=== PATIENT | female | born 1955 | race Caucasian/White ===

== ENCOUNTER 2025-10-09 12:46 | Outpatient (AMB) | payer MEDICARE, OTHER, SELFPAY ==
--- NOTE | 2025-10-09 12:49 | HO.SPINEOV ---
Vital Signs 10/09/25 12:55 Height 5 ft 8 in Weight 185 lb BMI 28.1 Intake Visit Reasons: Herniated disc Intake Note: Ms. Garibay is here today c/o Left sided low back pain. Coremaking Supervisor Required: No Allergies No Known Allergies Allergy (Verified 10/09/25 12:55) Physical Exam Vital Signs: BMI result Body Mass Index 28.1 Assessment & Plan Assessment & Plan (1) Lumbar disc herniation: Code(s): M51.26 - Other intervertebral disc displacement, lumbar region Category: Medical Plan Dear Darleen, Thank you for referring Mrs Garibay to our office today. She is a very nice 69-year-old female who has history of previous L4-5 oblique lumbar interbody fusion with Dr. Delaney in 2019 who was doing excellent until around May of this year when she started to notice intensified back pain shooting down her left leg into her hamstring. It happened after she was lifting a heavy object. Fast forward a few months, she ended up fracturing her tibia and required surgery. She now tells me that the pain is much more manageable. Especially in light of the fact that she has been able to increase her gabapentin. She is also using Tylenol. She had undergone physical therapy for her back for a number of weeks but it was not really doing much. She had a lumbar MRI done at [facility] in August that showed large herniated disc on the left at L5-S1. She came in today for follow-up. She has not report any weakness or cauda equina PMH: Type 1 diabetic with an A1c of 7.4, well-controlled hypertension, hyperlipidemia, chronic kidney disease stage IIIA, history of coronary artery disease with a stent in 2018, follows up yearly at [facility]. History of tibial fracture repair in July of this year, L4-5 oblique lumbar interbody fusion with Dr. Delaney in 2019, shoulder surgery 2023. Denies any history of major abdominal surgery, strokes, liver disease, bleeding disorders, blood clots or unusual infections. Social hx: Does not smoke, drink use any recreational drugs Medications: Long-acting and fast acting insulin, lisinopril, rosuvastatin, metoprolol, Zetia, Tylenol, gabapentin and baby aspirin Allergies: None Physical exam: She uses a cane to walk secondary to some limitations with her tibia but no focal motor deficits. She does not have an antalgic gait. Strength is normal in the lower extremities, I was unable to test the right knee secondary to the surgery. Reflexes absent at the patella and the Achilles. Imaging review: Lumbar MRI at [facility] on 09/20/2025 shows postsurgical changes L4-5, at L5-S1 she has a large herniated disc on the left side compressing the left S1 nerve root. Impression: 69-year-old female who has been dealing with back pain and left posterior thigh pain since May of this year when she herniated a disc. She had a previous surgery L4-5 oblique lumbar interbody fusion with Dr. Delaney in 2019 and did well with that. She now has an issue at L5-S1 with a herniated disc. Thankfully she is feeling better and the gabapentin seems to be helping quite a bit. I reassured her that 90% of herniated discs resolve on their own. The patient will be calling your office for a refill on the gabapentin. If the pain worsens, I told her to come back to the office and this is typically something Dr. Delaney would offer a simple microdiskectomy. Otherwise I will just have her follow up with me in a few months. Thank you for allowing us to care for your patient. The total time spent with this visit with this patient was 45 minutes reviewing history, physical exam, lumbar imaging review, and implementation of treatment plan or further diagnostic testing Sudarshan Delaney MD,PhD [facility] Coding Level of Care Code New Pt Level 4 (89449) Diagnoses Lumbar disc herniation M51.26
[2025-10-09 12:55] VITALS: BMI 28.1
--- OUTSIDE RECORDS SUMMARY | 2025-10-09 15:53 | XMS_ITS | Clinical Summary ---
Author Organization [facility] Address [address] [place] [address] Phone Care Team Providers Care Rotary Cutter Operator Name Role Phone Lisa Molina NP Primary Care Provider [phone] Allergies No known active allergies Medications UNABLE TO FIND Insulin Aspart (NOVOLOG FLEXPEN SC), Inject into the skin. Sliding scale Active cholecalciferol (VITAMIN D-3) 10 mcg (400 unit) tablet Take 2,000 Int'l Units by mouth daily. Active omeprazole (PRILOSEC) 20 mg tablet,delayed release (DR/EC) Take 1 tablet (20 mg total) by mouth 1 (one) time each day. Active aspirin 81 mg capsule 1 (one) time each day. 9 Active Lactobac no.41/Bifidobac t no.7 (PROBIOTIC-10 ORAL) 1 (one) time each day. Probiotic Product (Probiotic-10) Chew Tab Active insulin degludec (Tresiba FlexTouch U-100) 100 unit/mL (3 mL) injection pen 16 Units 2 times daily. 9 Active metoprolol succinate (TOPROL-XL) 25 mg 24 hr tablet TAKE 1 TABLET DAILY 90 tablet 1 5 Active lisinopriL (PRINIVIL,ZESTR IL) 30 mg tablet TAKE 1 TABLET DAILY 90 tablet 2 5 Active rosuvastatin (CRESTOR) 40 mg tablet TAKE 1 TABLET DAILY 90 tablet 2 5 Active ezetimibe (ZETIA) 10 mg tablet TAKE 1 TABLET DAILY 90 tablet 2 5 Active Active Problems Problem Noted Date Diagnosed Date Spondylolisthesis of lumbar region 11/18/2021 Diabetes ([facility] V24, [facility] V28) 09/30/2021 CAD (coronary artery disease) 07/29/2021 Overview (11/21/2024): Last Assessment & Plan: Patient has a history of coronary artery disease. She denies any exertional symptoms. She denies any episodes of chest pain. She continues on cardioprotective medical therapy with aspirin, metoprolol, and rosuvastatin. Patient advised to seek emergency medical attention by calling 911 if they were to develop severe dyspnea, chest pain that did not resolve with rest or nitroglycerin, or if they were to faint. Assessment & Plan (12/18/2024 9:12 AM EST): The patient has a history of coronary artery disease. Currently, the patient denies any chest pain at rest or with exertion. The patient continues on secondary preventive therapy for CAD, including: aspirin, statin and beta sosa. Will continue current therapy. HLD (hyperlipidemia) 07/29/2021 Overview (11/21/2024): Last Assessment & Plan: Patient has history of hyperlipidemia as well as a history of coronary artery disease. Her last LDL cholesterol was noted to be 50 in September 2022. She continues on rosuvastatin as prescribed. We will update a new CMP and fasting lipid panel to reassess her lipid control and make any adjustments as necessary. Her AST and ALT have been mildly elevated in the past and she follows with an supervisor hydrochloric area. I have reviewed with the patient the importance of a heart healthy lifestyle which includes eating a low-fat low-salt diet, getting regular exercise, maintaining a healthy weight, not smoking, and following up with routine medical care. Assessment & Plan (12/18/2024 9:12 AM EST): The patient has a history of hyperlipidemia. The patient is currently on rosuvastatin 40 mg orally daily and Zetia 10 mg orally daily. We will order a new lipid panel to evaluate the patient's current lipid control and determine if any adjustment are needed in the lipid lowering therapy. Orders: Lipid panel; Future Hepatic function panel; Future HTN (hypertension) 07/29/2021 Overview (11/21/2024): Last Assessment & Plan: Patient has a history of hypertension. Her blood pressure is noted to be well controlled today. We will continue her current antihypertensive medication regimen with lisinopril and metoprolol as prescribed. Assessment & Plan (12/18/2024 9:12 AM EST): The patient has a history of arterial hypertension. The patient's blood pressure today was noted to be well controlled. We'll continue the current antihypertensive medication regimen. Orders: ECG 12 lead Medical History Medical History Date Comments Chronic ischemic heart disease D X:Chronic ischemic heart disease Hyperlipidemia DX:Hyperlipidemi a Essential hypertension DX:Essent ial hypertension Family History Medical History Relation Name Comments No Known Problems Father No Known Problems Mother Relation Name Status Comments Father Mother Social History Tobacco Use Types Packs/Day Years Used Date Smoking Tobacco: Former Smokeless Tobacco: Former Alcohol Use Standard Drinks/Week Comments Not Currently 0 (1 standard drink = 0.6 oz pur e alcohol) Comments Unknown Sex and Gender Information Value Date Recorded Sex Assigned at Not on file Legal Sex Female 6:01 PM EST Gender Identity Not on file Sexual Orientation Not on file Obstetrics History Last Filed Vital Signs Vital Sign Reading Time Taken Comments Blood Pressure 136/80 12/18/2024 8:27 AM EST Pulse 74 12/18/2024 8:27 AM EST Temperature - - Respiratory Rate - - Oxygen Saturation 98% 12/18/2024 8:27 AM EST Inhaled Oxygen Concentration - - Weight 88.4 kg (194 lb 12.8 oz) 12/18/2024 8:27 AM EST Height 172.7 cm (5' 8 ) 12/18/2024 8:27 AM EST Body Mass Index 29.62 12/18/2024 8:27 AM EST Plan of Treatment Upcoming Encounters Date Type Department Care Team (Late st Contact Info) Description 12/18/2025 9:10 AM EST Office Visit [facility] [address] [place] [id number] Nae Warner NP [address] [place] [address] [address] [place] [address] 02/18/2026 10:10 AM EDT Office Visit Gastroenterology - [address] [facility] [address] [place] [phone] No Saaved[place] [address] [facility] [address] [place] [address] Health Maintenance Due Date Last Done Comments Breast Cancer Screening 1955 Diabetes: Annual Foot Exam 1965 Diabetes: Annual Retina Eye Exam 1965 Pneumococcal Vaccine: 50+ Years (1 of 2 - PCV) 1974 Zoster Vaccines (1 of 2) 2005 Falls Risk Assessment 10/29/2022 Hepatitis C Screening 10/29/2022 Medicare Annual Wellness Visit 10/29/2022 Osteoporosis Screening (Bone Density Screening) 10/29/2022 Social Influencers of Health Screening 10/29/2022 Diabetes: Annual Urine Albumin-Creatinine Ratio (uACR) 11/12/2022 Diabetes: Blood Sugar Control Test (HGBA1C) 11/12/2022 Diabetes: Annual GFR (Glomerular Filtration Rate) 04/22/2024 04/22/2023 Hypertension/CHF/CAD Annual BMP Blood Test 04/22/2024 04/22/2023 Depression Screening 11/27/2024 COVID-19 Vaccine ( season) 2025 09/12/2024, 09/10/2023, 08/11/2022, Additional history exists Influenza Vaccine (#1) 2025 , 09/10/2023, 08/11/2022, Additional history exists Cholesterol Screening (Lipid Panel) 12/18/2029 12/18/2024 RSV Immunization Adult Patients (1 - 1-dose 75+ series) 2030 DTaP,Tdap,and Td Vaccines (2 - Td or Tdap) 08/10/2035 08/10/2025 Colorectal Cancer Screening: Colonoscopy 08/12/2035 08/12/2025 HIB Vaccines Aged Out No longer eligi ble based on patient's age to complete this topic HPV Vaccines Aged Out No longer eligi ble based on patient's age to complete this topic Hepatitis A Vaccines Aged Out No long er eligible based on patient's age to complete this topic Hepatitis B Vaccines Aged Out No long er eligible based on patient's age to complete this topic IPV Vaccines Aged Out No longer eligi ble based on patient's age to complete this topic MMR Vaccines Aged Out No longer eligi ble based on patient's age to complete this topic Meningococcal ACWY Vaccine Aged Out N o longer eligible based on patient's age to complete this topic Meningococcal B Vaccine Aged Out No l onger eligible based on patient's age to complete this topic RSV Immunization Patients Under 20 months Aged Out No longer eligible based on patient's age to complete this topic Varicella Vaccines Aged Out No longer eligible based on patient's age to complete this topic Procedures Procedure Name Priority Date/Time Associated Diagnosis Comments COLONOSCOPY Routine 08/12/2025 10:50 AM EDT LIPID PANEL Routine 12/18/2024 9:18 AM EST Pure hypercholesterolemia from Last 3 Months or Most Recently Relevant to Health Maintenance Results * COLONOSCOPY (08/12/2025 10:50 AM EDT) Anatomical Region Laterality Modality Endoscopy Historical Provider GI~PROCEDURE ORDERABLES F inal Result * Lipid panel (12/18/2024 9:18 AM EST) Cholesterol Total 142 100 - 199 mg/dL [facility] Triglycerides 124 0 - 149 mg/dL [facility] 1 HDL Cholesterol 58 >39 mg/dL [facility] 1 VLDL Cholesterol Calculated 22 5 - 40 mg/dL [facility] 1 LDL Chol Calc (NIH) 62 0 - 99 mg/dL [facility] 1 Blood Venous blood specimen / Unknown 12/18/2024 9:18 AM EST 12/18/2024 Narrative [facility] 1 - 12/19/2024 4:06 AM EST Performed at: 01 - [facility] [address] [id number] Pilates Coordinator: Tessie Tovar MD, Phone: [phone] Александр Contreras MD LAB BLOOD ORDERABLES F inal Result [facility] 1 from Last 3 Months or Most Recently Relevant to Health Maintenance Insurance MEDICARE [facility] Care Teams Rotary Cutter Operator Relationship Specialty Start Date End Date Lisa Molina NP [address] [place] [address] PCP - General 10/02/19
--- OUTSIDE RECORDS SUMMARY | 2025-10-09 15:53 | XMS_ITS | Encounter Summary ---
Author Organization [facility] Address [address] [place] [address] Phone Care Team Providers Care Converting Technician Name Role Phone Lisa Molina VOLCANOLOGIST-C Primary Care Provider + Encounter Details Date Type Department Care Team (Late st Contact Info) Description 07/28/2023 Documentation Only [facility], [address] [place] [address] Tony Velez [address] [place] [address] Social History Tobacco Use Types Packs/Day Years Used Date Smoking Tobacco: Never Alcohol Use Standard Drinks/Week Comments Never 0 (1 standard drink = 0.6 oz pur e alcohol) Comments Unknown Sex and Gender Information Value Date Recorded Sex Assigned at Not on file Legal Sex Female 2:16 PM EDT Gender Identity Not on file Sexual Orientation Not on file documented as of this encounter Functional Status documented as of this encounter Plan of Treatment Not on file documented as of this encounter Visit Diagnoses Not on filedocumented in this encounter Care Teams Converting Technician Relationship Specialty Start Date End Date Lisa Mloina NP-C [address] [facility] [address] [place] [address] PCP - General Nurse Practitioner 07/28/23 documented as of this encounter
--- OUTSIDE RECORDS SUMMARY | 2025-10-09 15:53 | XMS_ITS | Clinical Summary ---
Author Organization [facility] Address [address] [place] [address] Care Team Providers Care Insert Operator Name Role Phone Lisa Molina Primary Care Provider [phone] Allergies No known active allergies Medications OneTouch Verio test strips USE TO TEST 8 TIMES DAILY 08/17/20 20 Active Yuvafem 10 mcg tablet PLEASE SEE ATTACHED FOR DETAILED DIRECTIONS 03/10/20 21 Active ezetimibe (ZETIA) 10 mg tablet Take 10 mg by mouth daily. 03/22/20 21 Active Tresiba FlexTouch U-100 100 unit/mL (3 mL) insulin pen INJECT 16 UNITS SUBCUTANEOUS TWICE DAILY FOR 90 DAYS 01/19/20 21 Active lisinopriL (PRINIVIL,ZESTRI L) 30 mg tablet Take 30 mg by mouth daily. 03/18/20 21 Active metoprolol succinate XL (TOPROL XL) 25 mg tablet Take 25 mg by mouth daily. 02/09/20 21 Active rosuvastatin (CRESTOR) 40 mg tablet Take 40 mg by mouth daily. 02/26/20 21 Active acetaminophen (TYLENOL) 500 mg tablet Take 500 mg by mouth every 6 hours as needed for pain. Active aspirin 81 mg EC tablet Take 81 mg by mouth daily. Active betamethasone dipropionate 0.05 % ointmentIndicati ons:Lichen sclerosus Apply nightly to affected itchy areas of the body. 45 g 3 08/06/20 24 Active vitamin D3 25 mcg (1,000 unit) capsule Take 2,000 Units by mouth once a day. Active lansoprazole (PREVACID) 30 mg capsule 09/18/20 24 Active metoclopramide (REGLAN) 10 mg tablet SMARTSI Tablet(s) By Mouth Twice Daily PRN 08/14/20 24 Active triamcinolone acetonide (KENALOG) 0.1% creamIndications :Lichen sclerosus Apply nightly to rash on back and abdomen until next follow up visit in 2-3 months. 454 g 01/07/20 25 Active Fiasp FlexTouch U-100 Insulin 100 unit/mL (3 mL) insulin pen INJECT 10 UNITS SUBCUTANEOUSLY 3 TIMES A DAY BEFORE MEALS Active gabapentin (NEURONTIN) 300 mg capsule Take 1 capsule (300 mg total) by mouth 3 times a day. 10 capsule 1 08/13/20 25 Active aspirin chewable tablet 81 mg Chew and swallow 2 tablets (162 mg total) by mouth 2 (two) times a day for 15 days. 60 tablet 08/15/20 25 Active naloxone HCl (NARCAN) 4 mg/actuation nasal spray Instill the contents of 1 unit intranasally for suspected opioid overdose. Repeat after 3 minutes if no or minimal response. 1 each 08/15/20 25 Active naloxone HCl (Narcan) 4 mg/actuation nasal spray Administer 0.1 mL (4 mg total) into affected nostril(s) as needed (Unresponsiveness with a suspected overdose). Instill the contents of 1 unit intranasally for suspected opioid overdose. Repeat after 3 minutes if no or minimal response. 2 each 1 08/15/20 25 Active Active Problems Problem Noted Date Diagnosed Date Tibial plateau fracture, right, closed, initial encounter 08/15/2025 Left knee pain 03/19/2024 Patella fracture 03/19/2024 Type 1 diabetes mellitus 07/28/2023 Hyperkalemia 07/28/2023 Lichen sclerosus 10/05/2021 Diabetes mellitus 08/17/2021 Gastroesophageal reflux disease 08/17/2021 Hyperlipidemia 08/17/2021 Hypertension 08/17/2021 Resolved Problems Problem Noted Date Diagnosed Date Resolved Date Left lumbar radiculopathy 04/14/2021 Encounters Date Type Department Care Team Description 09/25/2025 2:45 PM EDT Follow-Up [address] Orthopedic Department [address] [place] [address] 1st [place] [address] Barak Baltazar MD History of open reduction and internal fixation (ORIF) procedure (Primary Dx) 09/09/[address] Orthopedic Department [address] [place] [address] Barak Baltazar MD Dental Clearance Form; PT Order 08/26/2025 2:15 PM EDT Follow-Up [address] Orthopedic Department [address] [address] Barak Baltazar MD Status post open reduction and internal fixation (ORIF) of fracture (Primary Dx) 08/25/[address] Orthopedic Department [address] [place] [address] Barak Baltazar MD Post op concern 08/22/[address] [address] Barak Baltazar MD 08/15/2025 7:20 AM EDT Anesthesia Event [facility] [place] [address] [place] [address] Timothy Hinton MD 08/15/2025 7:10 AM EDT - 08/15/2025 9:40 AM EDT Surgery [facility] [place] [address] [place] [address] Barak Baltazar MD OPEN TREATMENT, FRACTURE, PROXIMAL TIBIA, UNICONDYLAR, WITH POSSIBLE INTERNAL FIXATION [46423 (CPT )] 08/15/2025 6:04 AM EDT - 08/15/2025 12:36 PM EDT Hospital Encounter [facility] [place] [address] [place] [address] Barak Baltazar MD Tibial plateau fracture, right, closed, initial encounter (Primary Dx) Discharge Disposition: Home with Services (06) 08/13/2025 10:15 AM EDT Follow-Up [address] Orthopedic Department [address] [place] [address] Barak Baltazar MD Closed fracture of right tibial plateau, initial encounter (Primary Dx) 08/13/2025 Prep for Case [facility] [address] Orthopedic Department 94 [facility] [address]st [place] [address] Barak Baltazar MD Closed fracture of right tibial plateau, initial encounter (Primary Dx) 08/10/2025 7:41 PM EDT - 08/10/2025 9:57 PM EDT Emergency [facility] Emergency Department [address] [place] [address] Jorge Connor MD Closed fracture of right tibial plateau, initial encounter (Primary Dx) Discharge Disposition: Home or Self Care (01) from Last 3 Months Immunizations Immunization Administration Dates Next Due COVID-19, Pfizer, mRNA, Biva lent Booster, PF, 30 mcg/0.3 mL dose (for age 12 y and up) 08/11/2022 Covid-19, Moderna, mRNA, Vac cine, PF, 50 mcg/0.5 mL (for age 12 y and up) 09/12/2024,09/10/2023 Covid-19, Pfizer, mRNA, Overton valent, PF 30 mcg/0.3 mL dose (for ages 12 and older) 09/13/2021,02/09/2021,01/19/2021 Covid-19, Pfizer, mRNA, Overton valent, PF, 30 mcg/0.3 mL dose, sang-sucrose (COMIRNATY)(for ages 12 and older) 03/24/2022 Influenza, High Dose Seasona l, Preservative Free (FLUZONE HIGH-DOSE) 08/07/2024 Influenza, High Dose Seasona l, Quadrivalent PF 08/11/2022 Influenza, Injectable, Madin Bergholz Canine Kidney, Preservative Free, Quadrivalent 08/24/2020 Influenza, Injectable, Quadr ivalent Preservative Free 09/10/2023,09/06/2021 Influenza, Injectable, Quadr ivalent, Preservative Free 10/16/2019,09/25/2018,09/04/2017 Tetanus Toxoid, Reduced Diph theria Toxoid, and Acellular Pertussis Vaccine, Adsorbed 08/10/2025 Family History Relation Name Status Comments Father Mother Social History Tobacco Use Types Packs/Day Years Used Date Smoking Tobacco: Never Smokeless Tobacco: Never Tobacco Cessation:Counseling Given: Not Answered Alcohol Use Standard Drinks/Week Comments Not Currently 0 (1 standard drink = 0.6 oz pur e alcohol) Comments No Sex and Gender Information Value Date Recorded Sex Assigned at Female 08/12/2023 1:19 PM EDT Legal Sex Female 11:50 AM EDT Gender Identity Female 08/12/2023 1:19 PM EDT Sexual Orientation Straight 08/12/2023 1: 19 PM EDT Last Filed Vital Signs Vital Sign Reading Time Taken Comments Blood Pressure 136/64 08/26/2025 2:19 PM EDT Pulse 86 08/15/2025 11:05 AM EDT Temperature 36.3 C (97.4 F) 09/25/2025 3:16 PM EDT Respiratory Rate 18 08/15/2025 11:05 AM EDT Oxygen Saturation 95% 08/15/2025 11:05 AM EDT Inhaled Oxygen Concentration - - Weight 84.2 kg (185 lb 9.6 oz) 09/25/2025 3:16 P M EDT Height 172.7 cm (5' 8 ) 09/25/2025 3:16 PM EDT Body Mass Index 28.22 09/25/2025 3:16 PM EDT Plan of Treatment Upcoming Encounters Date Type Department Care Team (Late st Contact Info) Description 11/25/2025 9:15 AM EST Follow-Up [address] Orthopedic Department [address] [place] [address] 1[address] [place] [address] Barak Baltazar MD [address] [place] [address] 03/31/2026 2:00 PM EDT Procedure visit [facility] [address] [facility], [place] [address] Director Of Quality: Norm Bauer MD [address] [place] [id number] Health Maintenance Due Date Last Done Comments Cologuard 1955 Colon Cancer Screening 1955 Colonoscopy 1955 FOBT / Fit Test 1955 Hemoglobin A1C 1955 Hepatitis C Screening 1955 Sigmoidoscopy 1955 Medicare AWV 1956 Ophthalmology Exam 1965 Urine Microalbumin 1965 Pneumococcal Vaccine: 50+ Years (1 of 2 - PCV) 1974 Mammogram 1995 Osteoporosis Screening 2005 Zoster Vaccines (1 of 2) 2005 Basic Metabolic Panel 04/22/2024 04/22/2023 Alcohol/Substance Use Screening 11/27/2024 Depression Screening and Follow-Up 11/27/2024 Health Care Proxy Review 11/27/2024 Social Drivers of Health Annual Screening 11/27/2024 COVID-19 Vaccine ( season) 2025 09/12/2024, 09/10/2023, 08/11/2022, Additional history exists Influenza Vaccine (#1) 2025 , 09/10/2023, 08/11/2022, Additional history exists Fall Risk Screening 09/25/2026 09/25/2025 RSV Vaccine (60+ years old and patients) (1 - 1-dose 75+ series) 2030 DTaP,Tdap,and Td Vaccines (2 - Td or Tdap) 08/10/2035 08/10/2025 Hepatitis B Vaccines Aged Out No long er eligible based on patient's age to complete this topic Medical Devices Implanted Type Area Amf Mechanic Device Identifier Shelf Expiration Date Model / Serial / Lot Plate Tibia Proximal Small Stainless Steel Right 6 Hole [id number] [facility] - [id number] Implanted:Qty: 1 on 08/15/2025 by Barak Baltazar MD at [facility] Implant Right: Tibia DEPUY 02.127.22 0 / / Screw Locking Variable Angle Self-Tapping With T15 Stardrive Recess Stainless Steel [id number] - [id number] Implanted:Qty: 1 on 08/15/2025 by Barak Baltazar MD at [facility] Implant Right: Tibia DEPUY SYNTHES SALES 02.127.17 0 / / Screw Cortex Self-Tapping Stainless Steel 3.4yop29sx - [id number] Implanted:Qty: 1 on 08/15/2025 by Barak Baltazar MD at [facility] Screw Right: Tibia DEPUY [employer]ES 204.834 / / Screw Cortex Self-Tapping Stainless Steel 3.9dvh40sx - [id number] Implanted:Qty: 1 on 08/15/2025 by Barak Baltazar MD at [facility] Screw Right: Tibia DEPUY [employer] SALES 204.875 / / Screw Cortex Self-Tapping Stainless Steel 3.9kev91ds - [id number] Implanted:Qty: 2 on 08/15/2025 by Barak Baltazar MD at [facility] Screw Right: Tibia DEPUY [employer] SALES 204.828 / / Screw Cortex Self-Tapping Stainless Steel 3.8uvk13yb - [id number] Implanted:Qty: 1 on 08/15/2025 by Barak Baltazar MD at [facility] Screw Right: Tibia DEPUY [employer] 204.826 / / Screw Locking Variable Angle Self-Tapping Stainless Steel T15 Stardrive [id number] - [id number] Implanted:Qty: 2 on 08/15/2025 by Barak Baltazar MD at [facility] Screw Right: Tibia DEPUY [employer] SALES 02127.16 5 / / Screw Locking Variable Angle Self-Tapping With T15 Stardrive Recess Stainless Steel 3.2gui44eb - [id number] Implanted:Qty: 1 on 08/15/2025 by Barak Baltazar MD at [facility] Screw Right: Tibia DEPUY SY[employer] SALES 02127.17 5 / / Graft Bone Cube Femur Head And Condyle Cancellous [id number] Freeze Dried - [id number] - [id number] Implanted:Qty: 1 on 08/15/2025 by Barak Baltazar MD at [facility] Tissue Right: Tibia [employer]ST 03/04/2029 [id number] / [id number] / Explanted Type Area Amf Mechanic Device Identifier Shelf Expiration Date Model / Serial / Lot Wire Tony Trocar Point 5mm Thread Stainless Steel [id number] - [id number] Explanted:Qty: 1 on 08/15/2025 by Barak Baltazar MD at [facility] Implant Right: Tibia DEPUY Granify 292.71 / / Wire Tony Trocar Point Stainless Steel [id number] - [id number] Explanted:Qty: 2 on 08/15/2025 at [facility] Wire Right: Tibia DEPUY Granify 292.20 / / Procedures * Due to [place] state law, this organization might not be sharing negative HIV tests. Procedure Name Priority Date/Time Associated Diagnosis Comments XR TIBIA FIBULA 2 VW RIGHT Routine 09/25/2025 3:26 PM EDT History of open reduction and internal fixation (ORIF) procedure XR TIBIA FIBULA 2 VW RIGHT Routine 08/26/2025 2:56 PM EDT Status post open reduction and internal fixation (ORIF) of fracture POCT GLUCOSE Routine 08/15/2025 9:47 AM EDT FL C-ARM WITH IMAGES NONREPORTABLE Routine 08/15/2025 9:16 AM EDT OK OPEN TX TIBIAL FRACTURE PROXIMAL UNICONDYLAR 08/15/2025 7:12 AM EDT Closed fracture of right tibial plateau, initial encounter Special Needs Synthes tibial plateau platesBone void fillerBone forcep trayLarge c-armDiving board triangle Have cancellous chips avail POCT GLUCOSE Routine 08/15/2025 6:51 AM EDT XR KNEE 1 OR 2 VW RIGHT STAT 08/10/2025 9:[address] LOWER EXTREMITY RIGHT WO CONTRAST STAT 08/10/2025 8:28 PM EDT COMPREHENSIVE METABOLIC PANEL Routine 04/22/2023 10:45 PM EDT from Last 3 Months or Most Recently Relevant to Health Maintenance Results * Due to [place] state law, this organization might not be sharing negative HIV tests. * X-Ray Tibia Fibula Right AP and Lateral (09/25/2025 3:26 PM EDT) Only the most recent of2 resultswithin the time period is included. Anatomical Region Laterality Modality Lower Extremities, Lower Leg Right Rad iographic Imaging Narrative 09/25/2025 3:58 PM EDT Views of her right tibia showed no sign of change in the position of the the lateral tibial plate and screws would seem to indicate further healing of the fracture us Barak Baltazar MD IMG XR PROCEDURES Final Re sult * (ABNORMAL) POCT Glucose, interfaced (08/15/2025 9:47 AM EDT) Only the most recent of2 resultswithin the time period is included. [facility] Glucose, POCT 166(H) 70 - 99 mg/dL 08/15/2025 9:48 AM EDT [facility] Comment: The senior accounting manager has not determined the efficacy of this test in Critically ill patients. [facility] defines Critically ill patients for the purpose of blood glucose monitoring (BGM) by glucometer, as patients meeting one or more of the following criteria: Hypotension- non-ICU patients (systolic blood pressure Less than 90 mmHg) due to shock Hypotension -ICU patients (Mean Arterial Pressure (MAP) <60 mmHg or systolic blood pressure < 90 mmHg due to shock Patients receiving Vasopressors (phenylephrine, vasopressin or norepinephrine) Anasarca In all locations, BGM test results should not be relied upon in the above situations, unless these results confirmed with lab-based glucose values. Blood 08/15/2025 9:47 AM EDT 08/15/2025 9:48 AM EDT Barak Baltazar MD LAB POCT ORDERABLES - PRINCE CE Final Result [facility] [address] [address], [place] [phone] * FL C-Arm with Images NONREPORTABLE (08/15/2025 9:16 AM EDT) Narrative IMAGING - 08/15/2025 9:17 AM EDT This procedure does not contain a result. Please see the surgeon's note for official report. Barak Baltazar MD IMG FLUOROSCOPY PROCEDURES Final Result IMAGING * X-Ray Knee Right 1 or 2 Views (08/10/2025 9:42 PM EDT) Anatomical Region Laterality Modality Lower Extremities, Knee Right Radiogra phic Imaging 08/10/2025 9:54 PM EDT Impressions 08/10/2025 9:58 PM EDT Acute minimally depressed lateral tibial plateau fracture extending into the tibial spine and proximal tibial metaphysis with associated lipohemarthrosis. Remainder of the visualized bones are intact. Note made of vascular calcifications. If this radiology report contains a blank impression section, it is an incomplete radiology report. Please contact the interpreting radiologist or applicable radiology division as soon as possible to obtain the completed interpretation. Workstation ID: [id number] Narrative 08/10/2025 9:58 PM EDT COMPARISON: Concurrent CT. FINDINGS AND Resulting Agency Comment [id number] Procedure Note Ana Jones MD - 08/10/2025 COMPARISON: Concurrent CT. FINDINGS AND IMPRESSION: Acute minimally depressed lateral tibial plateau fracture extending intothe tibial spine and proximal tibial metaphysis with associatedlipohemarthrosis. Remainder of the visualized bones are intact. [place] of vascular calcifications. If this radiology report contains a blank impression section, it is anincomplete radiology report. Please contact the interpreting radiologistor applicable radiology division as soon as possible to obtain thecompleted interpretation. Workstation ID: [id number] Blair Varghese IMG XR PROCEDURES Final Result * CT Lower Extremity Right WO Contrast (08/10/2025 8:28 PM EDT) Anatomical Region Laterality Modality Lower Extremities, Femur Right Compute d Tomography 08/10/2025 8:38 PM EDT Impressions 08/10/2025 8:39 PM EDT There is a comminuted lateral tibial plateau fracture which extends into the tibial spines and proximal tibial metaphysis. The largest fracture fragment demonstrates depression of approximately 6 mm. There is an associated large lipohemarthrosis. The patella, distal femur and proximal fibula are intact. There are extensive vascular calcifications. If this radiology report contains a blank impression section, it is an incomplete radiology report. Please contact the interpreting radiologist or applicable radiology division as soon as possible to obtain the completed interpretation. Workstation ID: [id number] Up-to-date CT equipment and radiation dose reduction techniques were employed. CTDIvol: 17.6 mGy. DLP: 428 mGy-cm. Narrative 08/10/2025 8:39 PM EDT COMPARISON: 02/21/2024. FINDINGS AND Resulting Agency Comment [id number] Procedure Note Patrick Webster MD - 08/10/2025 COMPARISON: 02/21/2024. FINDINGS AND IMPRESSION: There is a comminuted lateral tibial plateau fracture which extends intothe tibial spines and proximal tibial metaphysis. The largest fracturefragment demonstrates depression of approximately 6 mm. There is anassociated large lipohemarthrosis. The patella, distal femur and proximalfibula are intact. There are extensive vascular calcifications. If this radiology report contains a blank impression section, it is anincomplete radiology report. Please contact the interpreting radiologistor applicable radiology division as soon as possible to obtain thecompleted interpretation. Workstation ID: [id number] Up-to-date CT equipment and radiation dose reduction techniques wereemployed. CTDIvol: 17.6 mGy. DLP: 428 mGy-cm. us Blair Varghese IMG CT PROCEDURES Final Result * (ABNORMAL) Comprehensive Metabolic Panel (04/22/2023 10:45 PM EDT) NA 124(L) 136 - 145 mMOL/L [facility] K 5.0 3.5 - 5.1 mMOL/L [facility] Cl 90(L) 98.0 - 109.0 mMOL/L [facility] CO2 23 23 - 32 mMOL/L [facility] Anion Gap 16 11 - 21 mMOL/L [facility] BUN 27(H) 8 - 23 mg/dL [facility] Creatinine 1.47(H) 0.50 - 1.12 mg/dL [facility] eGFR 37(L) 60- eGFR [facility] Comment: GFR=30-44mL/min/1.73m^2; MODERATELY REDUCED KIDNEY FUNCTION (STAGE G3b) Glucose 175(H) 60 - 99 mg/dL [facility] Calcium 10.1 8.4 - 10.4 mg/dL [facility] Bilirubin, Total 0.30 0.2 - 1.2 mg/dL [facility] AST 31 0 - 33 U/L [facility] ALT 34(H) 0 - 33 U/L [facility] Total Protein 6.9 6.6 - 8.7 g/dL [facility] Albumin 4.5 3.5 - 5.0 gm/dL [facility] Globulin, Total 2.4 1.3 - 3.5 gm/dL [facility] A/G Ratio 1.9 1.5 - 3.0 . [facility] Alkaline Phosphatase 86 40.0 - 129.0 U/L [facility] Comment: CC: EDGARDO REYNOSO CC: ISAC COE MD CC: VIGNESH BARAKAT DO CC: LISA MOLINA 04/22/2023 10:4 5 PM EDT us Vignesh Barakat DO LAB BLOOD ORDERABLES Final Result [facility] from Last 3 Months or Most Recently Relevant to Health Maintenance Insurance MEDICARE [facility] Advance Directives * Full Code (Latest Code Status on File) Date Activated Date Inactivated Comments 08/15/2025 6:11 AM 08/15/2025 2:41 PM Care Teams Insert Operator Relationship Specialty Start Date End Date Lisa Molina [address] [place] [address] PCP - General 04/01/21
--- OUTSIDE RECORDS SUMMARY | 2025-10-09 15:53 | XMS_ITS | Encounter Summary ---
Author Organization [facility] Address [address] [place] [address] Phone Care Team Providers Care Event Promotions Coordinator Name Role Phone Lisa Molina TOLL LINE REPAIRER-C Primary Care Provider + Encounter Details Date Type Department Care Team (Late st Contact Info) Description 01/25/2022 Documentation Only [facility], [address] [place] [address] Tony Velez [address] [place] [address] Social History Tobacco Use Types [...] on file documented as of this encounter Plan of Treatment Not on file documented as of this encounter Visit Diagnoses Not on filedocumented in this encounter Care Teams Event Promotions Coordinator Relationship Specialty Start Date End Date Lisa Molina NP-C [address] [place] [address] PCP - General Nurse Practitioner 07/28/23 documented as of this encounter
--- OUTSIDE RECORDS SUMMARY | 2025-10-09 15:53 | XMS_ITS | Clinical Summary ---
Author Organization [facility] Address [address] [place] [address] Care Team Providers Care Hospital Security Officer Name Role Phone Jesse Lisa Echo NEEL Primary Care Provid er Allergies No known active allergies Medications acetaminophen (TYLENOL) 500 MG tablet Take 500 mg by mouth every 6 (six) hours as needed. Active aspirin 81 MG tablet Take 81 mg by mouth. Active OneTouch Verio test strips strp 2 Active blood sugar diagnostic (OneTouch Verio test strips) str USE TO TEST 8 TIMES DAILY 0 Active ezetimibe (ZETIA) 10 mg tablet ezetimibe 10 mg tablet 1 Active famotidine (PEPCID) 20 MG tablet famotidine 20 mg tablet Take 1 tablet twice a day by oral route. Active gabapentin (NEURONTIN) 300 MG capsule gabapentin 300 mg capsule 1 Active insulin aspart U-100 (NovoLOG Flexpen U-100 Insulin) 100 unit/mL (3 mL) injection Novolog Flexpen U-100 Insulin aspart 100 unit/mL (3 mL) subcutaneous 1 Active insulin degludec (Tresiba FlexTouch U-100) 100 unit/mL (3 mL) inpn Tresiba FlexTouch U-100 insulin 100 unit/mL (3 mL) subcutaneous pen 1 Active insulin degludec (Tresiba FlexTouch U-200) 200 unit/mL (3 mL) inpn Tresiba FlexTouch U-200 insulin 200 unit/mL (3 mL) subcutaneous pen Inject by subcutaneous route. Active lisinopriL (ZESTRIL) 30 MG tablet lisinopril 30 mg tablet Take 1 tablet every day by oral route. 1 Active metoprolol succinate 25 mg CSpX metoprolol succinate ER 25 mg capsule sprinkle, ext. release 24 hr Take 1 capsule every day by oral route. Active rosuvastatin (CRESTOR) 40 MG tablet rosuvastatin 40 mg tablet Take 1 tablet every day by oral route. Active tacrolimus (PROTOPIC) 0.03 % ointment tacrolimus 0.03 % topical ointment APPLY A THIN LAYER TO THE AFFECTED AREA(S) BY TOPICAL ROUTE 2 TIMES PER DAY ; RUB IN GENTLY AND COMPLETELY Active Social History Tobacco Use Types Packs/Day Years Used Date Smoking Tobacco: Never Smokeless Tobacco: Never Comments Unknown Sex and Gender Information Value Date Recorded Sex Assigned at Not on file Legal Sex Female 4:22 PM EDT Gender Identity Not on file Sexual Orientation Not on file Last Filed Vital Signs Vital Sign Reading Time Taken Comments Blood Pressure 150/80 06/28/2022 8:46 AM EDT Pulse 87 06/28/2022 8:46 AM EDT Temperature 35.7 C (96.2 F) 06/28/2022 8:46 AM EDT Respiratory Rate 18 06/28/2022 8:46 AM EDT Oxygen Saturation 97% 06/28/2022 8:46 AM EDT Inhaled Oxygen Concentration - - Weight 90.7 kg (200 lb) 06/28/2022 8:46 AM EDT Height 172.7 cm (5' 8 ) 06/28/2022 8:46 AM EDT Body Mass Index 30.41 06/28/2022 8:46 AM EDT Plan of Treatment Not on file Medical Devices Not on file Insurance [facility] Care Teams Hospital Security Officer Relationship Specialty Start Date End Date Lisa Molina, NEEL [address] [place] [id number] PCP - General Family Medicine 06/28/22
--- OUTSIDE RECORDS SUMMARY | 2025-10-09 15:53 | XMS_ITS | Encounter Summary ---
Author Organization [facility] Address [address] [place] [address] Phone Care Team Providers Care Hop Sorter Name Role Phone Lisa Molina IRRIGATION TEACHER-C Primary Care Provider + Encounter Details Date Type Department Care Team (Late st Contact Info) Description 06/07/2023 Documentation Only [facility] [place], [address] [place] [address] Tony Velez [address] [place] [address] Social History Tobacco Use Types [...] on filedocumented in this encounter Care Teams Hop Sorter Relationship Specialty Start Date End Date Lisa Molina NP-C [address] [place] [address] PCP - General Nurse Practitioner 07/28/23 documented as of this encounter
--- OUTSIDE RECORDS SUMMARY | 2025-10-09 15:54 | XMS_ITS | Continuity of Care Document ---
Author Organization [facility] [address] [place] [address] Phone [phone] Care Team Providers Care Machine Spring Former Name Role Phone Lisa Molina N.P. Care Team Information R eceiver [phone] Tony Velez M.D. Care Team Information Receiv er [phone] Problems Active Problems Provider Date Dyslipidemia Bailey Grande M.D. Ons et: 11/16/2022 Type 1 diabetes mellitus Bailey Grande M.D. Onset: 11/16/2022 Essential hypertension Vimal Jacobo Onset: 11/16/2022 Polyp of colon Bailey Grande M.D. Ons et: 11/16/2022 Rosacea Bailey Grande M.D. Ons et: 11/16/2022 Nonproliferative retinopathy due to diabetes mellitus Bailey Grande M.D. Onset: 11/16/2022 Diabetic peripheral neuropathy Bailey briones M.D. Onset: 11/16/2022 Aspartate aminotransferase s stephanie level raised Bailey Grande M.D. Onset: 11/16/2022 Basal cell carcinoma of skin Bailey shen M.D. Onset: 11/16/2022 Spinal stenosis of lumbar region Bailey Chase M.D. Onset: 11/16/2022 Cervical radiculopathy Vimal Jacobo Onset: 11/16/2022 Gastroesophageal reflux disease Bailey James M.D. Onset: 11/16/2022 Coronary atherosclerosis Bailey Grande M.D. Onset: 11/16/2022 Degenerative joint disease of thumb Bailey King M.D. Onset: 11/16/2022 Lichen sclerosus Bailey Grande M.D. On set: 11/16/2022 Chronic kidney disease stage 3A Bailey James M.D. Onset: 08/01/2023 Microalbuminuric diabetic nephropathy Bailey Wayne M.D. 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 08/29/2025 E10.8 Accu-Chek Guide TestStrips Use as directed up to 3 times daily for testing blood sugar 150units E10Partha8 Bailey rubio M.D. 08/29/2025 Z79.4 Admelog Kxtkwwkq972Gnod/ML Solution Pen-Inject Inject 10 units subcutaneously before each meal 30ml E10.8 Bailey Grande M.D. 11/05/2024 Z79.4 Rosuvastatin Udeckrs29ex Tablets 1 qd Mara Vilchis PA-C Nuuswrgcuj92ng Tablets Take 1 Tablet By Mouth Every Day Lisa Molina, N.PPartha Metoprolol Succinate ER25mg Tablets ER 24HR 1 qd Mara Vilchis PA-C Jelwdouvj96rn Tablets Take 1 Tablet By M outh Every Day Unknown Lanevxuxqehf33pg Capsules DR Take 1 Capsule By Mouth Twice A Day Yoselyn Sage MD Valacyclovir HCL1gm Tablets Take 2 Tablets By Mouth Twice A Day 12 Hours Apart as Needed For Outbreak Lsia Molina, N.PPartha Tresiba Gjvlhctne549Iaue/ML Solution Pen-Inject Inject 18 Units Subcutaneously In The Morning, 20 Units In The Evening 45units E10.9 Bailey Grande M.D. Aspirin Ec Low Spuw81pp Tablets DR Snow by mouth every day Bailey Grande M.D. Vitamin W106lvn (2000 Ut) Capsules 1 by mouth every day Bailey Grande M.D. ProbioticTablets DR Snow by mouth every day Bailey Grande M.D. Xtsxzn81gi Tablets Unknown 0 Vitamin [id number] Tablets 1 by mouth every day Bailey Grande M.D. Vital Signs Date Vital Result Comment 03/31/2025 7:20pm BP Systolic 134 mmHg BP Diastolic 70 mmHg Results Test Acquired Date Facility Test Result H/L Range Note Hemoglobin A1c 03/31/2025 Inhouse Hemoglobin A1c 7.4% Glucose Fingerstick 03/31/2025 Inhouse Glucose Fingerstick 134 Albumin/Creatinin e Ratio, Random Urine 10/04/2024 [facility] Creatinine, Urine 19.6 mg/dL Not Estab. Albumin, Urine 8.4 ug/mL Not Estab. Alb/Creat Ratio 43 mg/gcreat High 0-29 1 Glucose Fingerstick 10/04/2024 Inhouse Glucose Fingerstick 127 Hemoglobin A1c 12/11/2023 Inhouse Hemoglobin A1c 7.7% Glucose Fingerstick 12/11/2023 Inhouse Glucose Fingerstick 216 Vitamin B12 12/11/2023 [facility] Vitamin B12 414 pg/mL (232-124 5) Complete Abc With Diff 12/11/2023 [facility] WBC 6.7 K/MM3 (4.0-11. 0) RBC 4.49 M/MM3 (4.20-5. 40) HGB 13.6 GM/DL (11.7-15 .5) HCT 41.7 % (35.7-45 .8) MCV 92.9 FL (80.0-10 0.0) MCH 30.3 pg (27.0-34 .0) MCHC 32.6 g/dL Low (33.0-37 .0) PLT 326 K/MM3 (150-460 ) RDW-SD 48.3 FL High (<47.0) MPV 10.7 FL (9.4-12. 4) Automated NRBC 0.0 #/100WBC' S Abs. NRBC 0.0 K/MM3 Neut # 3.9 K/MM3 (1.3-7.0 ) Lymph # 2.1 K/MM3 (0.8-3.1 ) Loup# 0.7 K/MM3 (0.4-0.9 ) Eo # 0.1 K/MM3 (0.0-0.4 ) Baso # 0.0 K/MM3 (0.0-0.1 ) Abs. Imm Gran 0.0 K/MM3 Neut 57.6 % (44-76) Lymph 31.1 % (15-43) Monocyte 9.7 % (4.5-10. 5) Eo 1.0 % (0-6) Baso 0.3 % (0-2) Imm Gran 0.3 % Lipid Panel 12/11/2023 [facility] Cholesterol, Total 142 mg/dL (<200) Triglyceride 78 mg/dL (<150) HDL Chol 62 mg/dL (>39) LDL Cholesterol , Calculated 64 mg/dL (0-130) Non HDL Cholesterol (Calc) 80 mg/dL (<160) Comprehensive Metabolic Panl 12/11/2023 [facility] Glucose 155 mg/dL High (70-99) BUN 21 mg/dL (8-23) Creatinine 1.2 mg/dL High (0.5-1.0 ) Sodium 139 mmol/L (133-145 ) Potassium 5.0 mmol/L (3.6-5.2 ) Chloride 102 mmol/L (98-107) Bicarbonate 24 mmol/L (22-29) Anion Gap 13 (4-17) Albumin 4.5 GM/DL (3.4-4.8 ) Calcium 10.2 mg/dL (8.6-10. 5) Bilirubin,Total 0.3 mg/dL (0-1.2 ) Total Protein 7.0 GM/DL (6.2-8.2 ) Ag Ratio 1.8 Ast 35 U/L High (0-32) Alk Phos 96 U/L (35-104) Alt 23 U/L (0-33) Estimated GFR Creatinine 49 ML/MIN/1. 73M2 2 Comprehensive Metabolic Panl 06/07/2023 [facility] Glucose 127 mg/dL High (70-99) BUN 16 mg/dL (8-23) Creatinine 1.1 mg/dL High (0.5-1.0 ) Sodium 136 mmol/L (133-145 ) Potassium 5.4 mmol/L High (3.6-5.2 ) Chloride 99 mmol/L (98-107) Bicarbonate 25 mmol/L (22-29) Anion Gap 12 (4-17) Albumin 4.6 GM/DL (3.4-4.8 ) Calcium 10.4 mg/dL (8.6-10. 5) Bilirubin,Total 0.3 mg/dL (0-1.2 ) Total Protein 6.8 GM/DL (6.2-8.2 ) Ag Ratio 2.1 Ast 26 U/L (0-32) Alk Phos 81 U/L (35-104) Alt 24 U/L (0-33) Estimated GFR Creatinine 55 ML/MIN/1. 73M2 3 Lipid Panel 06/07/2023 [facility] Cholesterol, Total 130 mg/dL (<200) Triglyceride 84 mg/dL (<150) HDL Chol 61 mg/dL (>39) LDL Cholesterol , Calculated 52 mg/dL (0-130) Non HDL Cholesterol (Calc) 69 mg/dL (<160) TSH With Reflex To FT4 06/07/2023 [facility] TSH With Reflex To FT4 1.88 uIU/mL (0.4-4.2 ) Urinary Microalbumin 06/07/2023 [facility] Micro-Albumin <12.0 mg/L (<20) 4 Malb/Creat Ratio Unable t o calcul <SEE NOTE> MG/GM (0-20) 5 Urine Creat For Micro Albumin 40.9 mg/dL Glucose Fingerstick 06/07/2023 Inhouse Glucose Fingerstick 135 Hemoglobin A1c 06/07/2023 Inhouse Hemoglobin A1c 7.8% Comprehensive Metabolic Panl 11/16/2022 [facility] Glucose 165 mg/dL High (70-99) BUN 19 mg/dL (8-23) Creatinine 1.0 mg/dL (0.5-1.0 ) Sodium 138 mmol/L (133-145 ) Potassium 5.4 mmol/L High (3.6-5.2 ) Chloride 101 mmol/L (98-107) Bicarbonate 24 mmol/L (22-29) Anion Gap 13 (4-17) Albumin 4.8 GM/DL (3.4-4.8 ) Calcium 9.7 mg/dL (8.6-10. 5) Bilirubin,Total 0.4 mg/dL (0-1.2 ) Total Protein 6.9 GM/DL (6.2-8.2 ) Ag Ratio 2.3 Ast 39 U/L High (0-32) Alk Phos 88 U/L (35-104) Alt 31 U/L (0-33) Estimated GFR Creatinine 59 ML/MIN/1. 73M2 6 Hemoglobin A1c 11/16/2022 [facility] Hemoglobin A1c 7.1 % High (4.0-5.6 ) 7 1 Normal: 0 - 29 Moderately increased: 30 - 300 Severely increased: >300 2 Creatinine based est imated glomerular filtration (eGFR) in adults is calculated using the National Kidney Foundation recommended 2021 CKD-EPI equation. Estimates GFR from serum creatinine, age and sex. 3 Creatinine based est imated glomerular filtration (eGFR) in adults is calculated using the National Kidney Foundation recommended 2021 CKD-EPI equation. Estimates GFR from serum creatinine, age and sex. 4 The urine microalbum in test is designed to monitor renal function. When screening for Bence Pascual proteinuria, urine electrophoresis is recommended. 5 Unable to calculate 6 Creatinine based est imated glomerular filtration (eGFR) in adults is calculated using the National Kidney Foundation recommended 2021 CKD-EPI equation. Estimates GFR from serum creatinine, age and sex. 7 MONITORING: In known diabetic patients, hemoglobin A1c targets should be discussed with health care provider. DIAGNOSTIC USE: The [place] Diabetes Association (ADA) and the World Health Organization (WHO) recommend the use of HbA1c to diagnose diabetes using a threshold of 6.5%. Patients who have an HbA1c between 5.7% and 6.4% are considered at increased risk for developing diabetes in the future. CAUTION: Falsely low HbA1c results may be observed in patients with hemolytic anemia, homozygous forms of abnormal hemoglobin (e.g. SS, CC, SC), , recent blood loss or hemoglobin F greater than 7%. Fructosamine may be used as an alternate test in these cases. REFERENCE: ADA: Standards of Medical Care in Diabetes 2020, The Journal of Clinical and Applied Research and Education Volume 43, Supplement 1 Procedures Date Code Description Status 12/11/2023 19782 Collection Of Venous Blood B y Venipuncture Completed 06/07/2023 17385 Collection Of Venous Blood B y Venipuncture Completed 11/16/2022 24057 Collection Of Venous Blood B y Venipuncture Completed Medical Devices Description No Information Available Encounters Type Date Location Provider Dx Diagnosis Office Visit 03/31/2025 9:00a Main Office Bailey Grande M.D. E10.42 Type 1 diabetes mellitus with diabetic polyneuropathy E10.3292 Type 1 diab with mil d nonp rtnop without mclr edema, l eye I10 Essential (primary) hypertension I25.10 Athscl heart disease of [place] coronary artery w/o ang pctrs Z79.4 buttermaker (current) use of insulin Assessments Date Code Description Provider 03/31/2025 E10.42 Type 1 diabetes mellitus with diabetic polyneuropathy Bailey Grande M.D. 03/31/2025 E10.3292 Type 1 diabetes mellitus with mild nonproliferative diabetic retinopathy without macular edema, left eye Bailey Grande M.D. 03/31/2025 I10 Essential (primary) hyperten shayna Bailey Grande M.D. 03/31/2025 I25.10 Atherosclerotic heart disease of [place] coronary artery without angina pectoris Bailey Grande M.D. 03/31/2025 Z79.4 buttermaker (current) use of i nsulin Bailey Grande M.D. Plan of Treatment Future Appointment(s):* 01/07/2026 9:00 am - Bailey Grande M.D. at Main Office 12/11/2023 - Bailey Grande M.D.* I10 Essential (primary) hypertension * E10.42 Type 1 diabetes mellitus with diabetic polyneuropathy * I25.10 Atherosclerotic heart disease of [place] coronary artery without angina pectoris * Z79.4 long-term (current) use of insulin * E10.9 Type 1 diabetes mellitus without complications Functional Status Description No Information Available Mental Status Description No Information Available Referrals Description No Information Available
--- OUTSIDE RECORDS SUMMARY | 2025-10-09 15:54 | XMS_ITS | Clinical Summary ---
Author Organization [facility] Address [address] [place] [address] Phone Care Team Providers Care Television Inspector Name Role Phone Lisa Molina MOBILE EQUIPMENT SERVICER-C Primary Care Provider + Allergies No known active allergies Medications lisinopril (PRINIVIL,ZESTR IL) 30 MG tablet Take 30 mg by mouth 1 (one) time each day 07/06/2021 Active metoprolol succinate XL (TOPROL XL) 25 MG 24 hr tablet Take 25 mg by mouth 1 (one) time each day 08/08/2021 Active rosuvastatin (CRESTOR) 40 MG tablet Take 40 mg by mouth 1 (one) time each day 06/04/2021 Active ezetimibe (ZETIA) 10 MG tablet Take 10 mg by mouth 1 (one) time each day 06/28/2021 Active aspirin (ST LEANN) 81 MG EC tablet Take 81 mg by mouth 1 (one) time each day Active gabapentin (NEURONTIN) 300 MG capsule TAKE 1 CAPSULE BY MOUTH 1 2 TIMES PER DAY 05/10/2021 Active Active Problems Problem Noted Date Diagnosed Date Hyperkalemia 07/28/2023 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 07/28/2023 Gastroesophageal reflux disease 08/17/2021 Diabetes mellitus 08/17/2021 Hypertension 08/17/2021 Hyperlipidemia 08/17/2021 Encounters Date Type Department Care Team Description 08/13/2025 Telephone [facility] [address] [place] [address] Carlos Pinzon MA from Last 3 Months Family History Medical History Relation Comments Dementia Mother Hypertension Mother Relation Status Comments Mother Social History Tobacco Use Types Packs/Day [...] Sign Reading Time Taken Comments Blood Pressure 120/72 07/31/2024 2:08 PM EDT Pulse 70 07/31/2024 2:08 PM EDT Temperature - - Respiratory Rate - - Oxygen Saturation - - Inhaled Oxygen Concentration - - Weight - - Height - - Body Mass Index - - Plan of Treatment Health Maintenance Due Date Last Done Comments Breast Cancer Screening 1955 Colorectal Cancer Screening: Annual FOBT 2004 Colorectal Cancer Screening: Colonoscopy 2004 Colorectal Cancer Screening: Sigmoidoscopy 2004 Pneumococcal Vaccine: 50+ Years (1 of 1 - PCV) 2005 Diabetes: Hemoglobin A1C 08/17/2021 Diabetes: Ophthalmology Exam 08/17/2021 Diabetes: Pedal Pulse Checked 08/17/2021 Diabetes: Sensory Foot Exam 08/17/2021 Diabetes: Visual Foot Exam 08/17/2021 Influenza Vaccine (#1) 2025 , 09/10/2023, 09/06/2021, Additional history exists Hepatitis B Vaccine Aged Out No longe r eligible based on patient's age to complete this topic Insurance [employer] Medicare [employer] Medicare Care Teams Television Inspector Relationship Specialty Start Date End Date Lisa Molina NP-C [address], [address] [place] [address] PCP - General Nurse Practitioner 07/28/23
--- OUTSIDE RECORDS SUMMARY | 2025-10-09 15:54 | XMS_ITS | Encounter Summary ---
Author Organization [facility] Address [address] [place] [address] Phone Care Team Providers Care Cold Food Packer Name Role Phone Lisa Molina GUM ROLLING MACHINE OPERATOR-C Primary Care Provider + Encounter Details Date Type Department Care Team (Late st Contact Info) Description 08/01/2024 Documentation Only [facility] [place], [address] [place] [address] Tony Velez [address] [place] [address] Social History Tobacco Use Types [...] on filedocumented in this encounter Care Teams Cold Food Packer Relationship Specialty Start Date End Date Lisa Molina NP-C [address] [place] [address] PCP - General Nurse Practitioner 07/28/23 documented as of this encounter
--- OUTSIDE RECORDS SUMMARY | 2025-10-09 15:54 | XMS_ITS | Data Portability ---
Author Organization [place] - [facility], [facility] Address [id number] [place] [address] Assessment Encounter Date Assessment Date Assessment LastModified by Organization Details LastModified Time 10/05/2021 10/05/2021 Pt was seen for an annual exam. Overall doing well. Up to date with pap and mammogram. Reviewed precautions for postmenopausal bleeding, itching or other concerns. no longer needs paps, continue mammogram yearly Not available 09/30/2021 12:58:29 Plan of Treatment Reminders Order Date Submit Date Provider Last Modified By Organization Details Last Modified Time Details Appointments None recorded. Lab None recorded. Referral None recorded. Procedures None recorded. Surgeries None recorded. Imaging None recorded. Medication Orders Yuvafem 10 mcg vaginal tablet 2021 [facility]acy #[id number], [address] [place], [address], 15:59:30 clobetasol 0.05 % topical cream 2021 022 [facility]armacy #[id number], [address] [place], [address], 15:59:30 clobetasol 0.05 % topical cream 2020 021 [facility]acy #[id number], [address] [place], [address], 10:27:43 Vagifem 10 mcg vaginal tablet 2020 021 [facility]armacy #[id number], [address] [place], [address], 10:27:43 Patient TargetsNo targets recorded. Patient Instructions Encounter Date Encounter Id Patient Instructions Last Modified By Organization Details Last Modified Time 10/05/2021 [id number] atrophic vaginitis: care instructions Not available 10/05/2021 10:27:41 tips to help you stay healthy Not available 10/05/2021 10:29:56 10/10/2022 [id number] tips to help you stay healthy Not available 10/10/2022 15:59:28 Reason for Referral None Reported. Problems Name Problem SNOMED Code Status Onset Date Resolution Date Notes Provider Name and Address Organization Details Recorded Time Diabetes mellitus 86199791 Active 2020 Estrellita Pinckert null, [facility] 11:44:24 Lichen sclerosus 469790179 Active 2020 Estrellita Pinckert null, [facility] 09:49:21 Hypertensive disorder 06283164 Active 2020 Estrellita Pinckert null, [facility] 09:49:30 Hyperlipidemia 71341437 Active 2020 Estrellita Pinckert null, [facility] 09:49:37 Problem Notes None recorded. Procedures Surgical History Date Name Laterality Status Provider Name and Address Organization Details Recorded Time 10/27/20 21 procedure on back completed Estrellita Pinckert [facility] 10/10/2022 13:10:06 08/18/20 20 Date of Last Mammogram completed Estrellita Pinckert [facility] 10/01/2021 11:43:45 08/10/20 20 Date of Last Pap Smear completed Estrellita Pinckert [facility] 10/01/2021 11:59:15 07/31/20 20 procedure on hand completed Estrellita Pinckert [facility] 10/01/2021 11:47:21 10/11/20 19 Other completed Estrellita Pinckert [facility] 10/01/2021 11:48:39 11/27/19 17 [facility] 10/01/2021 11:48:53 11/27/19 17 [facility] 10/01/2021 11:49:41 11/27/19 12 Cholecystectomy completed Estrellita Pinckert [facility] 10/01/2021 11:49:27 12/21/19 05 [facility] 10/01/2021 11:46:40 12/21/19 05 [facility] 10/01/2021 11:47:30 [facility] 10/01/2021 11:46:06 [facility] 10/01/2021 11:46:15 Imaging Results None recorded. Procedure Notes None recorded. Medical Equipment None Reported. Allergies No known drug allergies Medications Name Sig Start Date Stop Date Status Note LastModified by Organization Details LastModified Time valacyclovi r 1 gram tablet TAKE 2 TABLETS BY MOUTH TWICE A DAY 12 HOURS APART NEEDED FOR OUTBREAK active Not Available Not Available No t Available ondansetron HCl 4 mg tablet TAKE 1 TABLET BY MOUTH EVERY 8 HOURS NEEDED active Not Available Not Available No t Available famotidine 40 mg tablet TAKE 1 TABLET BY MOUTH TWICE A DAY 10/10 completed Not Available Not Available Not Available clobetasol 0.05 % topical cream APPLY THIN COAT TO AFFECTED AREA TWICE A DAY active Not Available Not Available No t Available tramadol 50 mg tablet TAKE 1 TABLET BY MOUTH EVERY 6 HOURS NEEDED FOR PAIN FOR UP TO 7 DAYS. 10/10 completed Not Available Not Available Not Available triamcinolo ne acetonide 0.1 % topical cream APPLY NIGHTLY TO RASH ON BACK AND ABDOMEN UNTIL NEXT FOLLOW UP VISIT IN 2-3 MONTHS. active Not Available Not Available No t Available hydromorpho ne 2 mg tablet TAKE 1-2 TABLETS BY MOUTH EVERY 4 TO 6 HOURS NEEDED- FOR MODERATE PAIN SCALE 4-6 10/10 completed Not Available Not Available Not Available famotidine 20 mg tablet Take 1 tablet twice a day by oral route. 10/10 completed Not Available Not Available Not Available cephalexin 500 mg capsule TAKE 1 CAPSULE BY MOUTH TWICE DAILY. TAKE WITH FOOD AND WATER, MAY CAUSE GI UPSET. active Not Available Not Available No t Available erythromyci n 5 mg/gram (0.5 %) eye ointment APPLY 1 A SMALL AMOUNT INTO AFFECTED EYE THREE TIMES A DAY FOR 5 DAYS 10/10 completed Not Available Not Available Not Available tacrolimus 0.1 % topical ointment APPLY TOPICALLY TO AFFECTED AREAS TWICE DAILY NEEDED FOR MAINTENAN CE active Not Available Not Available No t Available lansoprazol e 30 mg capsule,del ayed release TAKE 1 CAPSULE BY MOUTH TWICE A DAY active Not Available Not Available No t Available tacrolimus 0.03 % topical ointment APPLY A THIN LAYER TO THE AFFECTED AREA(S) BY TOPICAL ROUTE 2 TIMES PER DAY ; RUB IN GENTLY AND COMPLETEL Y active Not Available Not Available No t Available lisinopril 30 mg tablet TAKE 1 TABLET DAILY active Not Available Not Available No t Available docusate sodium 100 mg capsule TAKE ONE CAP TWICE A DAY 10/10 completed Not Available Not Available Not Available gabapentin 300 mg capsule TAKE 1 CAPSULE BY MOUTH 1-2 TIMES PER DAY 10/10 completed Not Available Not Available Not Available mupirocin 2 % topical ointment APPLY 1-2 TIMES DAILY FOR WOUND ON THE HAND. active Not Available Not Available No t Available gabapentin 100 mg capsule TAKE 1 CAPSULE BY MOUTH EVERY DAY NEEDED active Not Available Not Available No t Available metoprolol succinate ER 25 mg tablet,exte nded release 24 hr TAKE 1 TABLET DAILY active Not Available Not Available No t Available clobetasol 0.05 % topical ointment APPLY TOPICALLY TO RASH 2 TO 3 TIMES WEEKLY NEEDED FOR MAINTENAN CE active Not Available Not Available No t Available betamethaso ne dipropionat e 0.05 % topical ointment APPLY NIGHTLY TO AFFECTED ITCHY AREAS OF THE BODY. active Not Available Not Available No t Available fluticasone propionate 50 mcg/actuati on nasal spray,suspe nsion SPRAY 1 SPRAY INTO EACH NOSTRIL EVERY DAY active Not Available Not Available No t Available naproxen 500 mg tablet PLEASE SEE ATTACHED FOR DETAILED DIRECTION S active Not Available Not Available No t Available metoclopram lucien 10 mg tablet TAKE 1 TABLET BY MOUTH TWICE A DAY NEEDED active Not Available Not Available No t Available oxycodone 5 mg tablet TAKE 1 TABLET DIRECTED BY MOUTH EVERY 4 HOURS NEEDED FOR PAIN NO DRIVING active Not Available Not Available No t Available ezetimibe 10 mg tablet TAKE 1 TABLET DAILY active Not Available Not Available No t Available Novolog FlexPen U-100 Insulin aspart 100 unit/mL (3 mL) subcutaneou s INJECT 10 UNITS SUBCUTANE OUSLY THREE TIMES A DAY FOR 90 DAYS active Not Available Not Available No t Available rosuvastati n 40 mg tablet TAKE 1 TABLET DAILY active Not Available Not Available No t Available Fish Oil 10/05 completed Not Available Not Available Not Available Vitamin D active Not Available Not Tri ilable Not Available metoprolol succinate 10/05 completed Not Available Not Available Not Available Baby Aspirin active Not Available Not Available Not Available Effient 10 mg tablet Take 1 tablet every day by oral route. 10/05 completed Not Available Not Available Not Available OneTouch Verio test strips UP TO 6 TIMES DAILY, USE 1 NEW TEST STRIP FOR TESTING BLOOD SUGAR DX: E10.9 active Not Available Not Available No t Available Humalog Mix currently novalog active Not Available Not Available No t Available Tresiba FlexTouch U-200 insulin 200 unit/mL (3 mL) subcutaneou s pen Inject by subcutane ous route. active Not Available Not Available No t Available Tresiba FlexTouch U-100 insulin 100 unit/mL (3 mL) subcutaneou s pen INJECT 18 UNITS SUBCUTANE OUSLY EVERY MORNING, 20 UNITS EVERY EVENING active Not Available Not Available No t Available Yuvafem 10 mcg vaginal tablet INSERT ONE TABLET EVERY DAY FOR 2 WEEKS THEN TWICE WEEKLY THEREAFTE R. 90 DAY SUPPLY active Not Available Not Available No t Available Fiasp FlexTouch U-100 Insulin 100 unit/mL (3 mL) subcutaneou s pen INJECT 10 UNITS SUBCUTANE OUSLY 3 TIMES A DAY BEFORE MEALS active Not Available Not Available No t Available Clenpiq 10 mg-3.5 gram-12 gram/160 mL oral solution TAKE 160 ML BY MOUTH TWICE A DAY DIRECTED FOLLOW INSTRUCTI ONS PROVIDED BY OFFICE active Not Available Not Available No t Available Admelog SoloStar U-100 Insulin lispro 100 unit/mL subcutaneou s pen INJECT 10 UNITS SUBCUTANE OUSLY BEFORE EACH MEAL active Not Available Not Available No t Available metoprolol succinate ER 25 mg capsule sprinkle, ext. release 24 hr Take 1 capsule every day by oral route. 10/10 completed Not Available Not Available Not Available Vitals Date Recorded Body height Body mass index (BMI) Body weight Systolic And Diastolic Provider Name and Address Organization Details Last Updated DateTime 10/05/2021 172.72 cm 27.1 kg/m2 63036.44 g 118/70 mm[Hg] Estrellita Dickinson [facility] 10/05/2021 09:55:15 Date Recorded Body height Body mass index (BMI) Body weight Systolic And Diastolic Provider Name and Address Organization Details Last Updated DateTime 10/10/2022 172.72 cm 30.6 kg/m2 10635.07 g 120/64 mm[Hg] Estrellita Dickinson [facility] 10/10/2022 13:11:30 Social History Question Answer Notes LastModified by Pens[employer] Details LastModified Time Tobacco Smoking Status Former Smoker Estrellita Dickinson [facility] 10/01/2021 11:58:06 What Is The Highest Grade Or Level Of School You Have Completed Or The Highest Degree You Have Received? [id number] Information not available 10/05/2021 Drug Use? No Information no t available 10/05/2021 Do You Feel Safe At Home? Yes Information not available 10/05/2021 How Many Children Do You Have? 2 Information not available 10/05/2021 Do You Use Protection During Sex? No Information not available 10/05/2021 Are You Sexually Active? Yes Information not available 10/05/2021 How Many Years Have You Smoked Tobacco? 5 Started At 22 Stopped At 27 Information not available 10/01/2021 Have You Recently Traveled Abroad? No Information not available 10/05/2021 Sex: Unknown Functional Status Question Answer Note LastModified by Browster ion Details LastModified Time What is your level of alcohol consumption? Occasional Information not available 10/05/2021 Are you currently employed? No Information not available 10/05/2021 Mental Status None recorded. Family History Relationship Description Onset Age of this Age Resolved Age Notes LastModified by Organization Details LastModified Time Maternal Aunt Malignant neoplasm of breast apinckert Not available 2020 09:52:15 Father Malignant neoplasm of pharynx apinckert Not available 2020 11:56:03 Maternal Grandmother Congestive heart failure apinckert Not available 2020 11:56:28 Mother Hypertensive disorder apinckert Not available 2020 11:56:49 Medical History No medical history recorded. Gynecological History Statement/Question Response Abnormal Pap Y Date of Last Mammogram 08/18/2020 Date of LMP Breast Biopsy N IPV Screen Done 10/10/2022 Breast Ultrasound Y STIs/STDs N Sexual Orientation heterosexual HPV Vaccine N Endometriosis N Fibroids N Cervical Cancer N Uterine Cancer N Current Control Method Menopause Ovarian Cancer N Date of Last Colonoscopy 11/27/2016 Breast Cancer N Date of last DEXA 08/15/2007 Mammogram Required? Y Sexually Active? N Date of Last Pap Smear 08/10/2020 Pap Required? N Last HPV Result Negative Obstetrics History GPAL:G 2 P 2 0 0 2 Type Value Multiple Births 0 Full Term 2 Induced 0 Spontaneous 0 Premature 0 Living 2 Ectopics 0 Total 2 Past Encounters Encounter ID Performer Location Encounter Start Date Encounter Closed Date Diagnosis/Indication Diagnosis SNOMED-CT Code Diagnosis ICD10 Code Diagnosis IMO Codes Diagnosis Note [id number] ZOE M[address]FIN[address], [facility] [address] [place] [address] 10/05/2021 09:29:29 10/05/2021 10:32:51 Atrophic vaginitis 29229593 N95.2 Gynecologi c examination 03054207 Z01.419 [id number] [address]OE [address], [address] [place] [address] 10/10/2022 12:56:29 10/10/2022 13:26:54 Gynecologic examination 79697779 Z01.419 Patient presents for a well woman exam. Her history is unremarkab le and her exam is normal. She has been counseled regarding no longer needing Pap smear screening as per guidelines . I have recommende d an annual Digital Bilateral Mammogram. I have counseled her about the benefit of performing monthly self-breas t exams. Discussed importance of a healthy diet (with broad and adequate plant sources, and low sugar/anim al fats), regular exercise (both cardio and strengthen ing), maintenanc e of a normal weight range and stress reduction. We spoke about the recommenda tion of 1200 mg of daily Calcium supplement ation and 600iu of Vitamin D daily. 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 She was also advised to maintain regular care with her pcp. Atrophic vaginitis 32668 000 N95.2 Health Concerns Section Related Observation LastModified by Organization Detai ls LastModified Time None Recorded Concern Status LastModified by Organization Details LastModified Time None Recorded Advance Directives Directive None Recorded Payers Insurance Date Sequence Insurance Name Policy Number Policy Griggs Covered Member ID Griggs Member ID Guarantor Name 03/15/2025 1 [place] [employer] Gwendolyn Garibay [id number] Gwendolyn Garibay 03/15/2025 2 [facility] PLAN F (MEDICARE SUPPLEMENT) [id number] Sudarshan Garibay [id number] Gwendolyn Garibay Notes Date Note Type Note Provider Name and Address Organization Details Recorded Time 10/05/2021 text/html here for annual exam, new pt, per old records up to date on pap, wnl 08/11/2020, mammo normal 08/18/2020, scheduled for repeat 1 week, was evaluated for prolapse 06/09/2020, all wnl, recommendation was for vagifem which she is taking, lichen sclerosus treating with clobetasol. no complaints MARYCRUZ ORONA CNM [address] [facility] [place], [address], [place] [facility] 10/05/2021 10:29:59 10/10/2022 text/html Presents for yearly visit. 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 HILARIO MORFIN [facility] [place], [address], [place] [facility] 10/10/2022 15:59:31 OBGyn Episode No OBEpisode recorded.
== END 2025-10-09 13:36 | disposition home or self-care (01) ==
LOC: HO.HNS 12:46
PROVIDERS: PCP Nurse Practitioner Primary Care; Visit Provider Physician Assistant
DX: M51.26 Other intervertebral disc displacement, lumbar region (principal)
CPT/HCPCS: 99204

== ENCOUNTER → 2025-10-09 12:46 | Outpatient (BNVA) | payer MEDICARE, OTHER, SELFPAY | PROVIDERS: PCP Nurse Practitioner Primary Care; Visit Provider Physician Assistant | DX: M51.26 Other intervertebral disc displacement, lumbar region (principal) | CPT/HCPCS: 99202 ==